=== PATIENT | male | born 1985 | race American Indian/Alaskan Native ===

== ENCOUNTER 2016-07-12 06:16 | Emergency (ER) | payer BC, OTHER ==
[2016-07-12 06:34] VITALS: RESP 18; O2SAT 99
--- NOTE | 2016-07-12 07:45 | ED PDOC ---
Arrival/HPI - General Chief Complaint: Hip Pain Time Seen by Provider: 07/12/16 07:10 Historian: Patient - History of Present Illness Narrative History of Present Illness (Text): 07/12/16 07:46 A 31 year old male presents to the emergency department complaining of left hip pain since last night. Patient reports pain developed after leg extensions at gym. Patient is ambulating and denies any back pain, knee pain, trauma, injury or any other complaints at this time. Symptom Onset: Sudden Symptom Course: Unchanged Activities at Onset: Other (gym) Associated Symptoms (Text): none Past Medical History - Provider Review Nursing Documentation Reviewed: Yes - Psychiatric Hx Substance Use: No Family/Social History - Physician Review Nursing Documentation Reviewed: Yes Family/Social History: No Known Family HX Smoking Status: n Hx Alcohol Use: No Hx Substance Use: No Allergies/Home Meds Allergies/Adverse Reactions: Allergies No Known Allergies Allergy (Verified 07/12/16 06:33) Review of Systems - Physician Review All systems were reviewed & negative as marked: Yes Physical Exam - Physical Exam Narrative Physical Exam (Text): 07/12/16 07:42- Review of Systems Constitutional: Normal. absent: Fatigue, Weight Change, Fevers Eyes: Normal ENT: Normal Respiratory: Normal absent: SOB, Cough, Sputum Cardiovascular: Normal absent: Chest pain, Palpitations, Syncope Gastrointestinal: Normal absent: Abdominal pain, Diarrhea, Nausea, Vomiting Genitourinary: Normal. absent: Dysuria, Frequency, Hematuria Musculoskeletal: Present: Left hip pain absent: Knee Pain, Back Pain, Neck Pain Skin: Normal Neurological: Normal absent: Focal Weakness Endocrine: Normal Hemo/Lymphatic: Normal Psychiatric: Normal - Physical exam Patient appears age appropriate, speaking full sentences without difficulty - Systems Exam Head: Present: Atraumatic, Normocephalic Pupils: Present: PERRL Extraocular Muscles: Present: EOMI Conjunctiva: Present: Normal Mouth: Present: Moist Mucous Membranes Neck: Present: Normal Range of Motion. No: MIDLINE TENDERNESS, Paraspinal Tenderness Respiratory/Chest: Present: Clear to Auscultation, Good Air Exchange. No: Respiratory Distress, Accessory Muscle Use, Tachypnic Cardiovascular: Present: Regular Rate and Rhythm, Normal S1, S2, Peripheral Pulses Present. No: Murmurs Abdomen: Present: Normal Bowel Sounds, No: Tenderness, Peritoneal Signs, Rebound, Guarding, Distention Back: Present: Normal Inspection. No: Midline Tenderness, Paraspinal Tenderness Upper Extremity: Present: Normal Inspection. No: Cyanosis, Edema Lower Extremity: Present: Pain with L hip internal rotation and flexion. Full active and passive range of motion, distal neurovascular fully intact. No: Edema Neurological: Present: GCS=15, Speech Normal, cranial nerves II through XII fully intact with no cerebellar abnormality, neuro-sensory fully intact. No focal neurological deficits. Skin: Present: Warm, Dry, Normal Color. No: Rashes Lymphatic: Present: OX3, NI, NC Psychiatric: Present: Alert, Oriented x 3, Normal Insight, Normal Concentration Vital Signs Reviewed: Yes Vital Signs Temp Pulse Resp BP Pulse Ox 07/12/16 08:15 98.0 F 70 18 124/81 99 07/12/16 06:31 98.2 F 68 18 132/76 99 07/12/16 06:30 98.2 F 68 18 132/76 99 Temperature: Afebrile Blood Pressure: Normal Pulse: Regular Respiratory Rate: Normal Appearance: Positive for: Well-Appearing, Non-Toxic, Comfortable Pain Distress: None Mental Status: Positive for: Alert and Oriented X 3 Medical Decision Making ED Course and Treatment: 07/12/16 07:46 Impression: A 31 year old male with left hip pain. On physical exam, patient has pain with left hip internal rotation and flexion. No other acute findings. Differential Diagnosis included but are not limited to: Strain versus sprain versus avulsion Plan: -- Radiology left hip -- Reassess and disposition Progress Notes: 07/12/16 08:17 07/12/16 08:46 On reevaluation, patient reports symptomatic relief. Ambulating in the emergency department with steady gait without difficulty. had an extensive d/w pt that although xrays are negative for any acute bony abnormality, it is still very important to fu with pmd and ortho specialist for further w/u and testing such as MRI to r/o any ligamentous/tendenous/meniscal injury. Pt verbalized full understanding of above discussion. Pt states he understands to return to the ER right away for new or worsening symptoms or for inability to f/u with PMD or specialist as instructed. Patient states that he fully agrees with and understands discharge instructions. States that he agrees with the plan and disposition. Verbalized and repeated discharge instructions and plan. I have given the patient opportunity to ask any additional questions. - RAD Interpretation Radiology Orders: 07/12/16 07:13 Hip Left [HIP MIN 4V W/ PELVIS LT] [RAD] Stat - Medication Orders Current Medication Orders: Discontinued Medications Ketorolac Tromethamine (Toradol) 30 mg IM STAT STA Stop: 07/12/16 08:04 Last Admin: 07/12/16 08:19 Dose: 30 mg - Scribe Statement The provider has reviewed the documentation as recorded by the Orion Garcia Provider Scribe Attestation: All medical record entries made by the Scribe were at my direction and personally dictated by me. I have reviewed the chart and agree that the record accurately reflects my personal performance of the history, physical exam, medical decision making, and the department course for this patient. I have also personally directed, reviewed, and agree with the discharge instructions and disposition. Disposition/Present on Arrival - Present on Arrival Any Indicators Present on Arrival: No History of DVT/PE: No History of Uncontrolled Diabetes: No Urinary Catheter: No History of Decub. Ulcer: No History Surgical Site Infection Following: None - Disposition Have Diagnosis and Disposition been Completed?: Yes Diagnosis: Hip pain Disposition: HOME/ ROUTINE Disposition Time: 08:48 Patient Plan: Discharge Condition: GOOD Discharge Instructions (ExitCare): Hip Pain (ED) Additional Instructions: PLEASE KEEP WEIGHT OFF EFFECTED HIP FOR THE NEXT WEEKS NO HEAVY LIFTING OR STRENUOUS ACTIVITY PLEASE RETURN TO THE EMERGENCY DEPARTMENT FOR NEW OR WORSENING SYMPTOMS. RETURN RIGHT AWAY IF YOU CANNOT FOLLOW UP WITH YOUR PRIMARY CARE DOCTOR, CLINIC, OR SPECIALIST IN 1-2 DAYS. Prescriptions: Ibuprofen [Motrin Tab] 800 mg PO BID #12 tab Referrals: PCP,NO [Primary Care Provider] - Follow up with primary Skyler Galvez MD [Staff Provider] - Follow up with primary Mitch Rizo DO [Staff Provider] - Follow up with primary
[2016-07-12 08:15] VITALS: BP 124/81; PULSE 70; TEMP 98
--- NOTE | 2016-07-12 09:32 | RAD ---
PROCEDURE: Left Hip and pelvis X-ray Radiographs. HISTORY: pain COMPARISON: None. FINDINGS: BONES: Normal. No fracture. JOINTS: Normal. SOFT TISSUES: Normal. OTHER FINDINGS: None. IMPRESSION: Negative study
== END 2016-07-12 09:14 | disposition home or self-care (01) ==
LOC: ED 06:16
DX: M25.552 Pain in left hip (principal)
CPT/HCPCS: 73503; 96372; 99284; J1885